=== PATIENT | female | born 1990 | race Caucasian/White ===

== ENCOUNTER 2017-03-26 15:37 | Emergency (ER) | payer OTHER ==
[2017-03-26 15:52] VITALS: TEMP 98.2; O2SAT 98
--- NOTE | 2017-03-26 16:05 | EDPHY ---
H & P Stated Complaint: DX- DVT IN LEFT LEG Source: Patient Exam Limitations: No limitations - Personal History LMP (Females 10-55): IUD In Place Current Tetanus/Diphtheria Vaccine: Yes Current Tetanus Diphtheria and Acellular Pertussis (TDAP): Yes - Medical/Surgical History Hx Asthma: No Hx Chronic Respiratory Disease: No Hx Diabetes: No Hx Cardiac Disease: No Hx Renal Disease: No Hx Cirrhosis: No Hx Alcoholism: No Hx HIV/AIDS: No Hx Splenectomy or Spleen Trauma: No Other PMH: RIGHT KNEE SURGERY with BONE GRAPH ON 04/07/13, LEFT KNEE 03/2017 - Social History Smoking Status: Never smoked Time Seen by Provider: 03/26/17 16:03 HPI/ROS: HPI: This is a 26-year-old female who presents with Chief Complaint: DX- DVT IN LEFT LEG Location: Left leg Quality: DVT Duration: 2 days Signs and Symptoms: No bleeding, no radiation, no numbness, no weakness, no tingling, no incontinence, no decreased range of motion, + swelling, + pain Timing: Gradual onset Severity: Moderate Context: Patient reports that she had ACL repair on her left knee on March [address] Geronimo. She has been taper down her oxycodone to 10/325 mg to only 2 times per day. She has been wearing her hinged brace and using crutches to aid ambulation. Approximately 2 nights ago, she woke up in the middle the night with left calf pain and noticed swelling to the point was double the size of her right calf. She denies any recent long distance travel. Nonsmoker. Does not take control pills. Denies paresthesias/skin color changes/ decreased range of motion. She called Dr. Geronimo is nurse who ordered an outpatient ultrasound today that showed small volume DVT in the left calf peroneal vein. She was sent to the emergency room for further evaluation and treatment. Modifying Factors: None Comment: ROS: see HPI Constitutional: No fever, no chills, no weight loss Eyes: No blurred vision Respiratory: No shortness of breath, no cough Cardiovascular: No chest pain Gastrointestinal: No nausea, no vomiting no diarrhea Genitourinary: No dysuria Extremities: No myalgias Neurologic: No weakness, no numbness Skin: No rashes Hematologic: No bruising, no bleeding MEDICAL/SURGICAL/SOCIAL HISTORY: Medical history: Generally healthy. Does not take any regular medications. Surgical history: RIGHT KNEE SURGERY with BONE GRAPH ON 04/07/13, LEFT KNEE 2016 Social history: . CONSTITUTIONAL: Pleasant, nontoxic appearing adult white female, awake and alert, no obvious distress HEENT: Atraumatic and normocephalic, PERRL, EOMI. Tympanic membranes clear. Oropharynx clear, no exudate and moist pink mucosa. Airway patent. No lymphadenopathy. No meningismus. Cardiovascular: Normal S1/S2, regular rate, regular rhythm, without murmur rub or gallop. PULMONARY/CHEST: Symmetrical and nontender. Clear to auscultation bilaterally. Good air movement. No accessory muscle usage. ABDOMEN: Soft, nondistended, nontender, no rebound, no guarding, no peritoneal signs, no masses or organomegaly. No CVAT. EXTREMITIES: 2/2 DP and PT pulses, strength 5/5, left knee in an Jatinder wrap with incisions that are well approximated and no indication of infection. Left calf shows tenderness with palpation and is twice the size of the right. No erythema /warmth. no deformities, no clubbing, no cyanosis or edema. NEUROLOGICAL: no focal neuro deficits. GCS 15. SKIN: Warm and dry, no erythema. no rash. Good capillary refill. (Radha Boogie) Constitutional: Initial Vital Signs Temperature (C) 36.8 C 03/26/17 15:48 Heart Rate 88 03/26/17 15:48 Respiratory Rate 17 03/26/17 15:48 Blood Pressure 111/67 03/26/17 15:48 O2 Sat (%) 98 03/26/17 15:48 O2 Delivery Mode Room Air Allergies/Adverse Reactions: No Known Allergies Allergy (Verified 09/08/15 12:05) Home Medications: Medication Instructions Recorded Oxycodone Ir (*) 03/26/17 Rivaroxaban [Xarelto] 1 each PO BID #1 tab.ds.pk 03/26/17 Zofran 03/26/17 Medical Decision Making ED Course/Re-evaluation: Labs ordered. Vital signs stable. Creatinine 0.8 given Xarelto 15 mg and prescription for same twice daily times 21 days. Case management consult to confirm that insurance cover Xarelto and patient able to afford. No signs of neurovascular compromise/tenting of skin/compartment syndrome/ extremities and joints examined above and below area of concern and are neurovascularly intact/thrombophlebitis/cellulitis/hypoxia. This patient was seen under the supervision of my secondary supervising physician. I evaluated care for this patient independently. Discussed this patient with Dr. Diaz who did not see the patient. (Radha Boogie) Differential Diagnosis: Differential diagnosis includes deep venous thrombosis and thrombophlebitis. (Radha Boogie) Other Provider: The patient was evaluated and managed by the Physician Box [employer]anger [employer]. I discussed the patient's presentation and course with the physician assistant reading teacher and agree with the evaluation. My co-signature indicates that I have reviewed this chart and I agree with the findings and plan of care as documented. I am the secondary supervising physician. (Eliana Diaz) - Data Points Laboratory Results: Laboratory Results 03/26/17 16:35 Medications Given: Discontinued Medications Rivaroxaban (Xarelto) 15 mg PO EDNOW ONE Stop: 03/26/17 16:28 Last Admin: 03/26/17 16:32 Dose: 15 mg Departure - Departure Disposition: Home, Routine, Self-Care Clinical Impression: Deep venous thrombosis of left peroneal vein, History of left knee surgery Condition: Good Instructions: Deep Vein Thrombosis (ED) Additional Instructions: Please wear compression stockings under left lower extremity. Take Xarelto 15 mg twice daily times 21 days and then 20 mg daily for total of 3 months. Follow-up with Orthopedics as previously scheduled. Referrals: Nicole Herbert MD [Medical Doctor] - As per Instructions Chandler Geronimo MD [Medical Doctor] - As per Instructions Prescriptions: Rivaroxaban [Xarelto] 1 each PO BID #1 tab.ds.pk
[2017-03-26] MEDS ORDERED: RIVAROXABAN 15 MG TAB PO ONE (16:27)
[2017-03-26 17:14] VITALS: BP 115/87; PULSE 71; RESP 16
--- NOTE | 2017-03-30 12:16 | ASDISCHSUM ---
Discharge Information Plan Status:Home with No Needs Medically Cleared to Leave: Discharge Date:03/26/2017 05:14 PM CM D/C Disposition:Home, Routine, Self-Care ADT D/C Disposition:Home, Routine, Self-Care Projected Discharge Date:03/26/2017 05:14 PM Transportation at D/C:None or Unknown Discharge Delay Reason: Follow-Up Date:03/26/2017 05:14 PM Discharge Slot: Final Diagnosis: Placement Information Patient Contact Information Contact Name:EDER Relationship:Other Address:[address] [place] [address] City:[place] Alternate Phone: [facility]/Zip Code:[place] [address] Email: Financial Information Financial Class:HMO and PPO Plans Primary Plan Desc:[employer] HADLEY LEVIN Primary Plan Number:[id number] Secondary Plan Desc: Secondary Plan Number: Assessment Information Intervention Information Intervention Type:Medication Date of Service:03/30/2017 12:14 PM Patient Type:Emergency Room Staff Member:MARTHA Sanon Sharon Hours:0.25 Discipline:Spud Grader Severity: Comment:Patient provided Xarelto $0 Co-Pay dis count card (for commercially insured patients).
== END 2017-03-26 17:14 | disposition home or self-care (01) ==
DX: I82.492 Acute embolism and thrombosis of other specified deep vein of left lower extremity (principal); Z96.651 Presence of right artificial knee joint

== ENCOUNTER → 2017-03-26 | Outpatient (CLI) | payer OTHER | LOC: FIMAGING 11:03 | PROVIDERS: ATTEND Orthopaedic Surgery Sports Medicine | DX: I82.4Z2 Acute embolism and thrombosis of unspecified deep veins of left distal lower extremity (principal) ==

== ENCOUNTER 2017-05-18 00:16 | Emergency (ER) | payer OTHER ==
[2017-05-18 00:24] VITALS: RESP 16; TEMP 98.2
--- NOTE | 2017-05-18 00:27 | EDPHY ---
H & P Stated Complaint: Swollen leg above knee - knee sx 4 days ago. HPI/ROS: HPI CHIEF COMPLAINT: Right leg swelling HISTORY OF PRESENT ILLNESS: Patient very pleasant 26-year-old female, she had an ACL reconstructive surgery [address] Geronimo, she has been healing from that. She had an ACL repair for left leg complicated by a DVT. She was in physical therapy today and he noted that her leg was more swollen than normal. The patient states that her leg has been rather swollen over the past 24-48 hours. She has not had any fever. Denies any significant drainage. Pain is well controlled with her home pain medicine. She is concerned she may have another DVT now in the right leg this time pain surgery was 4 days ago. She denies chest pain, shortness of breath, pleuritic pain. Past Medical History: Left ACL surgery complicated by DVT Past Surgical History: Recent right knee ACL surgery. 4 days ago. Social History: Denies drugs alcohol tobacco. Family History: Noncontributory ROS REVIEW OF SYSTEMS: A comprehensive 10 point review of systems is otherwise negative aside from elements mentioned in the history of present illness. Exam Constitutional appears well nontoxic no acute distress triage nursing summary reviewed, vital signs reviewed, awake/alert. Eyes normal conjunctivae and sclera, EOMI, PERRLA. HENT normal inspection, atraumatic, moist mucus membranes, no epistaxis, neck supple/ no meningismus, no raccoon eyes. Respiratory clear to auscultation bilaterally, normal breath sounds, no respiratory distress, no wheezing. Cardiovascular rate normal, regular rhythm, no murmur, no edema, distal pulses normal. Gastrointestinal soft, non-tender, no rebound, no guarding, normal bowel sounds, no distension, no pulsatile mass. Genitourinary no CVA tenderness. Musculoskeletal right lower extremity: Clean right ACL incision lines. Steri- Strips in place. No pus. Minimal warmth. Some mild redness, distally neurovascular intact good distal pulse. Good cap refill. The right leg is swollen diffusely compared to the left leg. Good distal pulse. no midline vertebral tenderness, full range of motion, no calf swelling, no tenderness of extremities, no meningismus, good pulses, neurovascularly intact. Skin pink, warm, & dry, no rash, skin atraumatic. Neurologic awake, alert and oriented x 3, AAOx3, moves all 4 extremities equally, motor intact, sensory intact, CN II-XII intact, normal cerebellar, normal vision, normal speech. Psychiatric normal mood/affect. Heme/Lymph/Immune no lymphadenopathy. Differential Diagnosis: Includes but is not limited to in a particular order, DVT, calf DVT, thigh DVT, infection Medical Decision Making: Plan for this patient ultrasound right lower extremity rule out DVT. Ice pack. Elevation. Re-evaluate. Re-evaluation: Ultrasound of right lower extremity shows no evidence of DVT. This is called to me by Dr. Hanley. Recommend close follow-up with orthopedic surgeon. Additionally if she has worsening redness, pain, swelling, fever return to the emergency room she understands. Spoke with Dr. Geronimo's Fellow, Dr. Herbert, Will see on saturday. Specifically asked if they would like to start her on antibiotics as she has erythema warmth and swelling however they do not want to start on antibiotics they would like to see her closely in follow-up on Saturday. They do have clinical Saturday despite this being a holiday. Additionally they understand return emergency room if there is worsening pain, swelling, fever, redness, drainage. Return precautions discussed. Patient is fine with this plan Source: Patient - Personal History LMP (Females 10-55): 15-21 Days Ago Current Tetanus/Diphtheria Vaccine: Yes Current Tetanus Diphtheria and Acellular Pertussis (TDAP): Yes - Medical/Surgical History Hx Asthma: No Hx Chronic Respiratory Disease: No Hx Diabetes: No Hx Cardiac Disease: No Hx Renal Disease: No Hx Cirrhosis: No Hx Alcoholism: No Hx HIV/AIDS: No Hx Splenectomy or Spleen Trauma: No Other PMH: RIGHT KNEE SURGERY with BONE GRAPH ON 04/07/13, LEFT KNEE 03/2017 - Social History Smoking Status: Never smoked Constitutional: Initial Vital Signs Temperature (C) 36.8 C 05/18/17 00:20 Heart Rate 77 05/18/17 00:20 Respiratory Rate 16 05/18/17 00:20 Blood Pressure 120/60 05/18/17 00:20 O2 Sat (%) 98 05/18/17 00:20 O2 Delivery Mode Room Air Allergies/Adverse Reactions: No Known Allergies Allergy (Verified 09/08/15 12:05) Home Medications: Medication Instructions Recorded Oxycodone Ir (*) 03/26/17 Rivaroxaban [Xarelto] 1 each PO BID #1 tab.ds.pk 03/26/17 Zofran 03/26/17 Naproxen 05/18/17 Departure - Departure Disposition: Home, Routine, Self-Care Clinical Impression: Postoperative pain Condition: Good Instructions: Leg Edema (ED) Additional Instructions: 1. Keep your leg elevated as much as possible 2. Ice your leg. 3. Return emergency room if you have worsening swelling pain, fever Referrals: Ailin Werner MD [Primary Care Provider] - As per Instructions Timothy Geronimo MD [Medical Doctor] - As per Instructions
[2017-05-18 01:36] VITALS: BP 113/46; PULSE 85; O2SAT 96
== END 2017-05-18 01:36 | disposition home or self-care (01) ==
DX: G89.18 Other acute postprocedural pain (principal)